=== PATIENT | female | born 1985 | race Caucasian/White ===

== ENCOUNTER 2020-04-12 17:34 | Outpatient (REF) | payer BC, SELFPAY ==
--- NOTE | 2020-04-12 17:25 | PAPFT_PTH ---
PATIENT: Brigida Munroe LOC: [facility], 1928–1983 U#:[id number] AGE/SX: 35/F ROOM: RE04/12/[address]: Fatou Lewis : 1985 BED: DIS: 04/12/2020 SPEC #: [id number] RECD: 04/17/20 12:46 STATUS: MERJosesito REQ #: [id number] HERIBERTO: 04/12/20 17:[address]: Fatou Lewis DEPT: [facility] Cytology RECD BY: Merly Maya ENTERED: 04/17/20 12:47 SP TYPE: PAPFT OTHR DR: Laina Keyes Tissues: 1 - CX/ENDOCX FOR PAP SMEARS Procedures: PAP THIN PREP/[facility] Screening HPV DNA PROBE Comments: [id number]
== END 2020-04-12 17:54 ==
LOC: NCHCN 17:34
PROVIDERS: PCP Family Medicine; Visit Provider Registered Nurse
DX: Z12.4 Encounter for screening for malignant neoplasm of cervix (principal); Z11.59 Encounter for screening for other viral diseases
CPT/HCPCS: 88142; 87624

== ENCOUNTER 2024-03-15 14:00 | Outpatient (CLI) | payer BC, SELFPAY ==
--- NOTE | 2024-03-15 | DI.RAD_ITS ---
Exam(s) XR WRIST LT COMPLETE EXAM: XR WRIST LT COMPLETE CLINICAL HISTORY: M25.532 Pain in left wrist. TECHNIQUE: 2D digital imaging was performed. COMPARISON: No exams were available for comparison FINDINGS: 3 views There is a very subtle subcortical lucency in the distal radius articular surface. Doubtful for an a cute fracture. There is no cortical buckling. Scaphoid and scapholunate distance appear unremarkabl e. There is no significant ulnar variance. No erosions evident. IMPRESSION: Subtle finding as above in the distal radial epiphysis. Doubtful for fracture... DATA REPOSITORY: RADIATION DOSE DELIVERED:
== END 2024-03-15 14:20 ==
LOC: DI 14:01
PROVIDERS: PCP Family Medicine; Visit Provider Family Medicine
DX: M25.532 Pain in left wrist (principal)
CPT/HCPCS: 73110

== ENCOUNTER 2024-12-02 15:54 | Outpatient (REF) | payer BC, SELFPAY ==
[2024-12-02 20:18] LABS: Abs Immature Grans 0.02 10^3/uL (0.0-0.06); HCT 40.7 % (36.0-46.0); HGB 13.4 g/dL (11.2-15.7); Immature Grans % 0.2 %; MCH 28.6 pg (27.0-33.0); MCHC 32.9 % (32.0-36.0); MCV 87 fL (80-95); MPV 11.1 fL (8.0-11.0); Platelet Count 313 10^3/uL (130-400); RBC 4.68 10^6/uL (3.93-5.22); RDW 13.4 % (11.7-14.6); RDW-SD 42.5 fL; WBC 9.42 10^3/uL (4.4-10.8)
[2024-12-02 20:21] LABS: ESR 13 mm/hr (0-20)
[2024-12-02 20:36] LABS: C-Reactive Protein < 0.50 mg/dL (<or=0.5)
== END 2024-12-02 15:55 | disposition home or self-care (01) ==
LOC: NCHCN 15:54
PROVIDERS: PCP Family Medicine; Visit Provider Family Medicine
DX: M25.431 Effusion, right wrist (principal)
CPT/HCPCS: 85652; 85025; 86140